=== PATIENT | male | born 1960 ===

== ENCOUNTER 2021-02-04 06:01 | Day surgery (SDC) | payer BC ==
[~2021-02-04] VITALS: Ht 188 cm; Wt 131.1 kg
[2021-02-04] MEDS ORDERED: MEVACOR 20M20 MG/TAB PO (06:28)
[2021-02-04] MEDS ORDERED: COZAAR100 MG PO (06:28)
[2021-02-04 06:29] VITALS: BP 139/97; PULSE 73; TEMP 97.8
[2021-02-04 07:35] VITALS: BP 120/90; PULSE 69; TEMP 97.2
--- NOTE | 2021-02-04 07:35 | NUR ---
Pt to [facility] via cart from [facility]. Pt drowsy, but awake. Pt ambulates to recliner with stand by assistance x2. in room. Muffin and juice given per pt request. Call light within reach.
[2021-02-04 07:50] VITALS: BP 134/85; PULSE 64
--- NOTE | 2021-02-04 07:50 | NUR ---
Pt continues to rest. Tolerating PO food and fluids without diffiuclties. Call light within reach.
[2021-02-04 08:05] VITALS: BP 123/81; PULSE 57
--- NOTE | 2021-02-04 08:05 | NUR ---
in to speak with pt and .
--- NOTE | 2021-02-04 08:10 | NUR ---
IV site discontinued with all parts intact. Pt up to dress. Call light within reach.
--- NOTE | 2021-02-04 08:20 | NUR ---
Pt escorted to private car via wheel chair. Pt accompanied home by his .
[2021-02-04 16:41] VITALS: BP 115/75; PULSE 62
== END 2021-02-04 08:20 | disposition home or self-care (01) ==
LOC: SDCO 06:01
DX: Z12.11 Encounter for screening for malignant neoplasm of colon (principal); D12.2 Benign neoplasm of ascending colon; K63.5 Polyp of colon; K64.0 First degree hemorrhoids; E78.5 Hyperlipidemia, unspecified; I10 Essential (primary) hypertension; K57.30 Diverticulosis of large intestine without perforation or abscess without bleeding; Z20.822 Contact with and (suspected) exposure to COVID-19; Z80.0 Family history of malignant neoplasm of digestive organs
CPT/HCPCS: J2704; J7030